=== PATIENT | female | born 1990 | race Caucasian/White ===

== ENCOUNTER 2017-01-09 11:06 | Outpatient (CLI) | payer MEDICAID ==
[~2017-01-09] VITALS: Ht 162.6 cm; Wt 112.7 kg
[~2017-01-09 11:06] MED LIST: ALBUTEROL S0.4 MG/ML; ALBUTEROL0.09 MG/A4 IH; CEFTIN500 MG PO; CLEOCIN HCL300 MG PO; DEBROX OT; DIPHENHYDRAMINE25 M1 PO; MOTRIN 800800 MG/TAB PO; NORCO 325 MG-51 TAB PO; PHENERGAN 25 TA25 MG PO; PREDNISONE20 MG PO; PRENATAL 191 TAB PO; PRENATAL1 TA1 PO; PRENATAL1 TA2 PO; PROVENTIL0.09 MG/A1 IH; PYRIDIUM200 M1 PO; SINGULAIR; SUDAFED 12HR120 MG PO; VICODIN 5/5001 UDTAB PO; ZOFRAN 4MG T4 MG/TAB PO; ZOFRAN4 M1 PO
[2017-01-09 11:47] VITALS: BP 135/76; PULSE 99; TEMP 98.7
[2017-01-09] MEDS ORDERED: TYLENOL 500MG500 MG PO (11:58)
[2017-01-09 12:37] VITALS: BP 129/58; PULSE 87; TEMP 98.7
== END 2017-01-09 12:50 | disposition home or self-care (01) ==
LOC: LDRO 11:06 → LDR 11:30 → LDRO 12:50
DX: Z03.71 Encounter for suspected problem with amniotic cavity and membrane ruled out (principal); O99.333 Smoking (tobacco) complicating pregnancy, third trimester; F17.210 Nicotine dependence, cigarettes, uncomplicated; Z3A.35 35 weeks gestation of pregnancy
CPT/HCPCS: OP

== ENCOUNTER 2017-01-10 18:09 | Outpatient (CLI) | payer MEDICAID ==
[~2017-01-10] VITALS: Ht 162.6 cm; Wt 113.6 kg
[2017-01-10] VITALS (9 sets, daily range): BP systolic 126–141; BP diastolic 60–65; PULSE 82–100; TEMP 98
[~2017-01-10 18:09] MED LIST changes: +TYLENOL 500MG500 MG PO
[2017-01-10 18:48] LABS: BASO % 0.3 % (0.0-2.0); EOS # 0.1 (0.0-0.7); EOS % 1.2 % (0-4.0); GRAN # 9.1 (1.4-6.5); GRAN % 77.8 % (42.2-75.2); LYMPH # 1.7 (1.2-3.4); LYMPH % 14.7 % (20.0-51.0); MEAN CELL VOLUME 87 fl (80.0-100.0); MEAN CORPUSCULAR HGB CONC 34 g/dl (33.0-37.0); MEAN PLATELET VOLUME 10.3 fl (7.4-10.4); MONO # 0.6 (0.1-0.6); MONO % 5.4 % (1.7-9.3); PLATELET COUNT 192 K/mm3 (130-400); RED BLOOD COUNT 3.92 M/mm3 (4.10-5.30); REDCELL DISTRIBUTION WIDTH-CV 13.2 % (11.5-14.5); WHITE BLOOD COUNT 11.7 K/mm3 (4.8-10.8)
[2017-01-10 18:49] LABS: HEMATOCRIT 33.9 % (37.0-47.0); HEMOGLOBIN 11.5 g/dl (12.5-16.0); MEAN CORPUSCULAR HEMOGLOBIN 29 pg (27.0-31.0)
[2017-01-10 19:12] LABS: ADJUSTED CALCIUM 9.6 mg/dL (8.4-10.2); ALBUMIN 3.2 gm/dL (3.5-5.0); BILIRUBIN,TOTAL 0.5 mg/dL (0.0-1.0); CREATININE, serum 0.59 mg/dL (0.52-1.25); POTASSIUM 3.8 mmol/L (3.4-5.0); TOTAL PROTEIN 6.1 gm/dL (6.4-8.2)
== END 2017-01-10 19:55 | disposition home or self-care (01) ==
LOC: LDRO 18:09
PROVIDERS: Obstetrics & Gynecology
DX: O26.893 Other specified pregnancy related conditions, third trimester (principal); Z87.891 Personal history of nicotine dependence; Z3A.36 36 weeks gestation of pregnancy

== ENCOUNTER 2017-01-19 15:22 | Inpatient (IN) | payer MEDICAID ==
[~2017-01-19] VITALS: Ht 162.6 cm; Wt 117.3 kg
[2017-01-26] MEDS ORDERED: TYLENOL 500MG500 MG PO (19:26)
[2017-02-01] VITALS (34 sets, daily range): BP systolic 99–145; BP diastolic 52–77; PULSE 71–121; TEMP 97.8–98.3
[2017-02-01 08:09] LABS: BASO % 0.4 % (0.0-2.0); EOS # 0.1 (0.0-0.7); EOS % 0.6 % (0-4.0); GRAN # 9.2 (1.4-6.5); LYMPH # 1.4 (1.2-3.4); LYMPH % 12.4 % (20.0-51.0); MEAN CELL VOLUME 85 fl (80.0-100.0); MEAN CORPUSCULAR HGB CONC 34 g/dl (33.0-37.0); MEAN PLATELET VOLUME 10.1 fl (7.4-10.4); MONO # 0.5 (0.1-0.6); MONO % 4.2 % (1.7-9.3); PLATELET COUNT 283 K/mm3 (130-400); RED BLOOD COUNT 3.96 M/mm3 (4.10-5.30); REDCELL DISTRIBUTION WIDTH-CV 13.5 % (11.5-14.5); WHITE BLOOD COUNT 11.2 K/mm3 (4.8-10.8)
[2017-02-01 08:13] LABS: HEMATOCRIT 33.7 % (37.0-47.0); HEMOGLOBIN 11.6 g/dl (12.5-16.0); MEAN CORPUSCULAR HEMOGLOBIN 29 pg (27.0-31.0)
[2017-02-02 00:30] VITALS: BP 138/88; PULSE 95; TEMP 98.4
[2017-02-02 07:40] VITALS: BP 138/79; PULSE 90; TEMP 97.6
[2017-02-02 08:15] LABS: HEMATOCRIT 32.6 % (37.0-47.0); HEMOGLOBIN 10.8 g/dl (12.5-16.0)
[2017-02-02] MEDS ORDERED: IBU600 MG PO (08:48)
[2017-02-02 19:33] VITALS: BP 125/63; PULSE 98; TEMP 97.8
[2017-02-03 08:20] VITALS: BP 129/95; BP 140/95; BP 147/95; PULSE 68; TEMP 97.9
[2017-02-03 09:43] VITALS: BP 140/95
[2017-02-03 12:21] VITALS: BP 135/80
[2017-02-03 16:50] VITALS: BP 138/76; PULSE 82; TEMP 98.1
[2017-02-04] MEDS ORDERED: NORCO 325 MG-51 TAB PO (10:12)
[2017-02-04] MEDS ORDERED: CEPHALEXIN500 M1 PO (10:12)
== END 2017-02-03 18:08 | disposition home or self-care (01) | DRG 775 ==
LOC: LDR 01-31 10:44 → OB 02-01 16:20 → EDSTATUS 02-07 10:29 → LDR 02-07 10:30 → LDRO 02-07 15:21
PROVIDERS: Obstetrics & Gynecology
PROC: 10E0XZZ Delivery of Products of Conception, External Approach (ICD-10-PCS; principal; 2017-02-01)
PROC: 3E033VJ Introduction of Other Hormone into Peripheral Vein, Percutaneous Approach (ICD-10-PCS; 2017-02-01)
DX: O36.5930 Maternal care for other known or suspected poor fetal growth, third trimester, not applicable or unspecified (principal); O13.3 Gestational [pregnancy-induced] hypertension without significant proteinuria, third trimester; O99.334 Smoking (tobacco) complicating childbirth; F17.210 Nicotine dependence, cigarettes, uncomplicated; Z3A.39 39 weeks gestation of pregnancy; Z37.0 Single live birth; Z87.51 Personal history of pre-term labor
CPT/HCPCS: J2540; J2590; J7120

== ENCOUNTER 2017-01-26 18:10 | Outpatient (CLI) | payer MEDICAID ==
[~2017-01-26] VITALS: Ht 162.6 cm; Wt 115.5 kg
[2017-01-26 19:02] VITALS: BP 135/69; PULSE 96; TEMP 98
[2017-01-26 19:10] VITALS: BP 135/69; PULSE 96; TEMP 98
[2017-01-26] MEDS ORDERED: TYLENOL 500MG500 MG PO (19:26)
[2017-01-26 19:45] VITALS: BP 139/80; PULSE 87
[2017-01-26 20:45] VITALS: BP 131/63; PULSE 88
== END 2017-01-26 21:00 | disposition home or self-care (01) ==
LOC: LDRO 18:10
DX: O47.1 False labor at or after 37 completed weeks of gestation (principal); Z3A.38 38 weeks gestation of pregnancy; Z87.891 Personal history of nicotine dependence

== ENCOUNTER 2017-02-04 09:25 | Emergency (ER) | payer MEDICAID ==
[~2017-02-04] VITALS: Ht 162.6 cm; Wt 113.6 kg
[~2017-02-04 09:25] MED LIST changes: +IBU600 MG PO
[2017-02-04 09:38] VITALS: BP 138/69; PULSE 111; TEMP 98.7
[2017-02-04] MEDS ORDERED: NORCO 325 MG-51 TAB PO (10:12)
[2017-02-04] MEDS ORDERED: CEPHALEXIN500 M1 PO (10:12)
== END 2017-02-04 10:19 | disposition home or self-care (01) ==
LOC: COL.ER 09:25
DX: O91.22 Nonpurulent mastitis associated with the puerperium (principal)

== ENCOUNTER 2017-04-24 14:05 | Emergency (ER) | payer MEDICAID ==
[~2017-04-24] VITALS: Ht 162.6 cm; Wt 109.1 kg
[~2017-04-24 14:05] MED LIST changes: +CEPHALEXIN500 M1 PO
[2017-04-24 14:13] VITALS: TEMP 99
[2017-04-24 16:18] VITALS: BP 126/67
[2017-04-24 16:45] VITALS: PULSE 76
== END 2017-04-24 16:58 | disposition home or self-care (01) ==
LOC: COL.ER 14:05
DX: M79.602 Pain in left arm (principal); F41.9 Anxiety disorder, unspecified; R42 Dizziness and giddiness; R20.0 Anesthesia of skin